=== PATIENT | female | born 1990 | race Caucasian/White ===

== ENCOUNTER 2019-08-04 08:00 | Outpatient (CLI) | payer OTHER ==
[2019-08-04 21:37] LABS: CANDIDA GROUP DNA POSITIVE (NEGATIVE); CANDIDA KRUSEI DNA NEGATIVE (NEGATIVE); TRICHOMONAS VAGINALIS DNA NEGATIVE (NEGATIVE)
== END 2019-08-04 23:59 | disposition home or self-care (01) ==
LOC: LAB.R 08:00
PROVIDERS: ATTEND Obstetrics & Gynecology
DX: B37.3 Candidiasis of vulva and vagina (principal)
CPT/HCPCS: 87661; 87801

== ENCOUNTER 2019-10-03 07:00 | Outpatient (CLI) | payer OTHER | END 2019-10-03 23:59 | disposition home or self-care (01) | LOC: LAB.WCP 07:00 | PROVIDERS: ATTEND Physician Assistant | DX: E03.9 Hypothyroidism, unspecified (principal) | CPT/HCPCS: 36415; 84443 ==

== ENCOUNTER 2019-11-07 14:27 | Outpatient (CLI) | payer OTHER | END 2019-11-07 23:59 | disposition home or self-care (01) | LOC: LAB.WCP 14:27 | PROVIDERS: ATTEND Physician Assistant | DX: R63.5 Abnormal weight gain (principal) | CPT/HCPCS: 36415; 82088; 84244 ==

== ENCOUNTER 2019-11-09 09:45 | Outpatient (CLI) | payer OTHER ==
[2019-11-15 10:23] LABS: CREATININE, URINE 1.38 g/24 h (0.50-2.15)
== END 2019-11-09 23:59 | disposition home or self-care (01) ==
LOC: LAB.R 09:45
PROVIDERS: ATTEND Physician Assistant
DX: R63.5 Abnormal weight gain (principal)
CPT/HCPCS: 82530; 82570

== ENCOUNTER 2020-05-03 10:31 | Outpatient (CLI) | payer OTHER ==
[2020-05-03 11:24] LABS: THYROID STIMULATING HORMONE 2.2 uIU/mL (0.34-5.60)
[2020-05-03 11:52] LABS: FOLLICLE STIMULATING HORMONE 5.72 mIU/mL
[2020-05-03 11:53] LABS: LUTEINIZING HORMONE 4.47 mIU/mL
[2020-05-04 07:14] LABS: PROGESTERONE 0.5 ng/mL
== END 2020-05-03 10:32 | disposition home or self-care (01) ==
LOC: LAB 10:31
PROVIDERS: ATTEND Obstetrics & Gynecology
DX: N97.0 Female infertility associated with anovulation (principal)
CPT/HCPCS: 36415; 81599; 82627; 82670; 83001; 83002; 84144; 84402; 84403; 84443

== ENCOUNTER 2020-05-13 14:15 | Outpatient (CLI) | payer OTHER ==
--- NOTE | 2020-05-13 15:13 | Ultrasound Report ---
PROCEDURE: Pelvic w/Transvaginal INDICATIONS: ANOVULATION TECHNIQUE: Real-time scanning was performed of the pelvic organs, with image documentation. Additional endovagi nal scanning was necessary due to incomplete visualization of the adnexal and endometrial structures by transabdominal scanning. COMPARISON: None. FINDINGS: Transabdominal scanning: Limited scanning through the kidneys shows no hydronephrosis. No pathologi c free abdominal or pelvic fluid. Endovaginal scanning: Uterus: Uterus is normal in size at 8.4 x 3.8 x 4.8 cm. Uterine echotexture is heterogeneous. The e ndometrium measures 4 mm in combined thickness. Ovaries: Greater than 12 follicular cysts are present which in each ovary. IMPRESSION: 1. Findings which would be consistent with polycystic ovarian syndrome in the appropriate clinical se tting. Reviewed by: Sean Mata MD on 05/13/2020 3:11 PM PDT Approved by: Sean Mata MD on 05/13/2020 3:11 PM PDT Station ID: [id number]
== END 2020-05-13 14:16 | disposition home or self-care (01) ==
LOC: DI 14:15
PROVIDERS: ATTEND Obstetrics & Gynecology
DX: N83.02 Follicular cyst of left ovary (principal); N83.01 Follicular cyst of right ovary
CPT/HCPCS: 76830; 76856

== ENCOUNTER 2020-06-22 08:00 | Outpatient (CLI) | payer OTHER ==
[2020-06-22 10:01] LABS: MUDS CUTOFF CONCENTRATIONS CUTOFF CONC BELOW:
[2020-06-22 10:12] LABS: BILIRUBIN,URINE NEGATIVE (NEGATIVE); GLUCOSE, URINE (UA) NEGATIVE (NEGATIVE); KETONES,URINE (UA) NEGATIVE (NEGATIVE); LEUKOCYTE ESTERASE, URINE NEGATIVE (NEGATIVE); NITRITE,URINE NEGATIVE (NEGATIVE); OCCULT BLOOD,URINE NEGATIVE (NEGATIVE); PROTEIN,URINE NEGATIVE (NEGATIVE); UROBILINOGEN,URINE 0.2 (NORMAL) E.U./dL (NORMAL)
[2020-06-22 10:26] LABS: BACTERIA,URINE None Seen /HPF (None Seen); CLARITY,URINE CLEAR (CLEAR); RBC,URINE None Seen /HPF (0-5); SQUAMOUS EPITHELIAL CELL,UR RARE Squamous (<= Few)
[2020-06-22 10:36] LABS: AMPHETAMINE SCREEN,URINE NEGATIVE (NEGATIVE); BENZODIAZEPINES SCREEN, URINE NEGATIVE (NEGATIVE); COCAINE SCREEN URINE NEGATIVE (NEGATIVE); METHADONE SCREEN, URINE NEGATIVE (NEGATIVE); METHAMPHETAMINES SCREEN, URINE NEGATIVE (NEGATIVE); OPIATE SCREEN, URINE NEGATIVE (NEGATIVE); OXYCODONE SCREEN, URINE NEGATIVE (NEGATIVE); PROPOXYPHENE SCREEN, URINE NEGATIVE (NEGATIVE); TRICYCLIC ANTIDEPRESSANT,URINE NEGATIVE (NEGATIVE)
== END 2020-06-22 23:59 | disposition home or self-care (01) ==
LOC: LAB.R 08:00
PROVIDERS: ATTEND Obstetrics & Gynecology
DX: Z32.01 Encounter for pregnancy test, result positive (principal)
CPT/HCPCS: 80306; 81001; 87086

== ENCOUNTER 2020-07-04 08:00 | Outpatient (CLI) | payer OTHER ==
--- NOTE | 2020-07-05 10:18 | Ultrasound Report ---
PROCEDURE: OB First Trimester INDICATIONS: POSITIVE TEST OUTSIDE/PRIOR DATING DATA: Last menstrual period (LMP): 05/02/2020. LMP-based estimated date of delivery (MINE): 02/06/2021. First dating scan (date and location): 07/04/2020, current study. Estimated date of delivery (MINE) from first dating scan: 02/23/2020. TECHNIQUE: Real-time scanning was performed of the fetus and maternal pelvic organs, with image documentation. Transvaginal imaging was performed for more accurate assessment of the pole size. COMPARISON: None during this FINDINGS: Embryo: An intrauterine gestational sac contains products of conception including a pole and y olk sac. Mean gestational sac diameter is 2.1 cm. Average crown-rump length of the pole is 7.8 mm. There is detectable cardiac activity at a rate of 146 bpm. Yolk sac is normal size. Measurement variability in dating: +/- 4 weeks by LMP, +/- 7 days by mean sac diameter (use before 6 weeks gestation if crown-rump length not able to be measured), +/- 5 days by crown-rump length (6-12 weeks gestation). Maternal organs: Closed cervix. No perigestational hemorrhage. Small fibroid in a subserosal left po sterior position measuring 1.2 cm. The ovaries are normal. There is a corpus luteum on the left ovary . Limited images through the kidneys demonstrate no hydronephrosis. There is mild hepatic steatosis. IMPRESSION: 1. Single living intrauterine with gestational age by crown-rump length of 6 weeks, 5 days, and estimated due date of 02/23/2020. 2. Left ovarian corpus luteum. 3. Small subserosal fibroid. 4. Mild hepatic steatosis. Reviewed by: Rosanna Badillo MD on 07/05/2020 10:17 AM PDT Approved by: Rosanna Badillo MD on 07/05/2020 10:17 AM PDT Station ID: [id number]
--- NOTE | 2020-07-05 10:18 | Ultrasound Report ---
PROCEDURE: OB First Trimester INDICATIONS: POSITIVE TEST OUTSIDE/PRIOR DATING DATA: Last menstrual period (LMP): 05/02/2020. LMP-based estimated date of delivery (MINE): 02/06/2021. First dating scan (date and location): 07/04/2020, current study. Estimated date of delivery (MINE) from first dating scan: 02/23/2020. TECHNIQUE: Real-time scanning was performed of the fetus and maternal pelvic organs, with image documentation. COMPARISON: None during this FINDINGS: Embryo: An intrauterine gestational sac contains products of conception including a pole and y olk sac. Mean gestational sac diameter is 2.1 cm. Average crown-rump length of the pole is 7.8 mm. There is detectable cardiac activity at a rate of 146 bpm. Yolk sac is normal size. Measurement variability in dating: +/- 4 weeks by LMP, +/- 7 days by mean sac diameter (use before 6 weeks gestation if crown-rump length not able to be measured), +/- 5 days by crown-rump length (6-12 weeks gestation). Maternal organs: Closed cervix. No perigestational hemorrhage. Small fibroid in a subserosal left po sterior position measuring 1.2 cm. The ovaries are normal. There is a corpus luteum on the left ovary . Limited images through the kidneys demonstrate no hydronephrosis. There is mild hepatic steatosis. IMPRESSION: 1. Single living intrauterine with gestational age by crown-rump length of 6 weeks, 5 days, and estimated due date of 02/23/2020. 2. Left ovarian corpus luteum. 3. Small subserosal fibroid. 4. Mild hepatic steatosis. Reviewed by: Rosanna Badillo MD on 07/05/2020 10:16 AM PDT Approved by: Rosanna Badillo MD on 07/05/2020 10:16 AM PDT Station ID: [id number]
== END 2020-07-04 23:59 | disposition home or self-care (01) ==
LOC: DI 08:00
PROVIDERS: ATTEND Obstetrics & Gynecology
DX: O34.81 Maternal care for other abnormalities of pelvic organs, first trimester (principal); N83.12 Corpus luteum cyst of left ovary; O34.11 Maternal care for benign tumor of corpus uteri, first trimester; D25.2 Subserosal leiomyoma of uterus; Z3A.01 Less than 8 weeks gestation of pregnancy
CPT/HCPCS: 76801; 76817

== ENCOUNTER 2020-07-31 12:26 | Outpatient (CLI) | payer OTHER ==
[2020-07-31 12:41] LABS: BASOPHILS # (AUTO) 0.1 10^3/uL (0.0-0.1); BASOPHILS % (AUTO) 0.6 %; EOSINOPHILS # (AUTO) 0.1 10^3/uL (0.0-0.7); EOSINOPHILS % (AUTO) 0.9 %; HGB - HEMOGLOBIN 12.7 g/dL (12.0-16.0); LYMPHOCYTES # (AUTO) 2.1 10^3/uL (1.5-3.5); LYMPHOCYTES % (AUTO) 23.5 %; MEAN CORPUSCULAR HEMOGLOBIN 32.9 pg (27.0-31.0); MEAN CORPUSCULAR HGB CONC 34.5 g/dL (32.0-36.0); MEAN CORPUSCULAR VOLUME 95.3 fL (81.0-99.0); MONOCYTES # (AUTO) 0.5 10^3/uL (0.0-1.0); NEUTROPHILS # (AUTO) 6.1 10^3/uL (1.5-6.6); NEUTROPHILS % (AUTO) 68.4 %; PLT - PLATELET COUNT 275 10^3/uL (130-450); RED BLOOD COUNT 3.86 10^6/uL (4.20-5.40); RED CELL DISTRIBUTION WIDTH 11.9 % (12.0-15.0); WHITE BLOOD COUNT 8.9 x10^3/uL (4.8-10.8)
[2020-07-31 13:08] LABS: ALBUMIN 3.9 g/dL (3.2-5.5); BILIRUBIN,TOTAL 0.6 mg/dL (0.2-1.0); CALCIUM 9.6 mg/dL (8.5-10.3); CREATININE 0.7 mg/dL (0.4-1.0); TOTAL PROTEIN 7.7 g/dL (6.7-8.2)
[2020-07-31 21:40] LABS: HEMOGLOBIN A1c% 4.5 % (4.27-6.07)
[2020-08-01 10:51] LABS: HIV AG/AB 4TH GEN NON-REACTIVE (NON-REACTIVE)
[2020-08-01 13:36] LABS: HEPATITIS C ANTIBODY NON-REACTIVE (NON-REACTIVE)
[2020-08-01 14:21] LABS: HEPATITIS B SURFACE ANTIGEN NON-REACTIVE (NON-REACTIVE)
== END 2020-07-31 12:27 | disposition home or self-care (01) ==
LOC: LAB 12:26
PROVIDERS: ATTEND Obstetrics & Gynecology
DX: O09.90 Supervision of high risk pregnancy, unspecified, unspecified trimester (principal); Z3A.00 Weeks of gestation of pregnancy not specified
CPT/HCPCS: 36415; 80053; 81220; 81243; 81329; 81599; 83036; 84443; 85025; 86592; 86762; 86803; 86850; 86900; 86901; 87340; 87389

== ENCOUNTER 2020-08-15 09:59 | Outpatient (CLI) | payer SELFPAY | END 2020-08-15 10:00 | disposition home or self-care (01) | LOC: LAB 09:59 | PROVIDERS: ATTEND Obstetrics & Gynecology | DX: Z01.89 Encounter for other specified special examinations (principal) | CPT/HCPCS: 36415 ==

== ENCOUNTER 2020-08-29 09:47 | Outpatient (CLI) | payer SELFPAY | END 2020-08-29 09:48 | disposition home or self-care (01) | LOC: LAB 09:47 | PROVIDERS: ATTEND Obstetrics & Gynecology | DX: O09.90 Supervision of high risk pregnancy, unspecified, unspecified trimester (principal) | CPT/HCPCS: 36415 ==

== ENCOUNTER 2020-09-20 16:48 | Outpatient (CLI) | payer OTHER ==
--- NOTE | 2020-09-20 19:26 | Ultrasound Report ---
PROCEDURE: OB F/U or Repeat INDICATIONS: HX OF PULMONARY EMBOLISM OUTSIDE/PRIOR DATING DATA: Last menstrual period (LMP): 05/02/2020. LMP-based estimated date of delivery (MINE): 02/06/2021. First dating scan (date and location): 07/04/2020. Estimated date of delivery (MINE) from first dating scan: 02/22/2021. TECHNIQUE: Real-time scanning was performed of the fetus, with image documentation and biometric measurements. Endovaginal scanning: Not needed COMPARISON: 07/04/2020 FINDINGS: General: A single living intrauterine gestation is present. Presentation: Cephalic Placenta: Placental position is posterior, without previa. Amniotic fluid index: 16.4 cm, normal for gestational age. heart rate: 152 beats per minute. Maternal cervical canal: 5.8 cm long; normal length is 2.5 cm or more. biometrics: Biparietal diameter: 3.8 cm, 17 weeks 4 days Head circumference: 14.4 cm, 17 weeks 5 days Abdominal circumference: 12.4 cm, 18 weeks 0 days Femur length: 2.5 cm, 17 weeks 4 days Estimated gestational age from initial scan: 17 weeks 6 days. Composite gestational age from present scan: 17 weeks 5 days Estimated weight and percentile: 210 g, 40th percentile Measurement variability in biometric dating: +/- 10 days from 12-20 weeks gestation, +/- 2 weeks from 20-30 weeks gestation, +/- 3 weeks at 30 weeks gestation or more. Other: Not applicable. IMPRESSION: Appropriate interval growth, no anomaly seen. anatomic survey is not perform ed due to early gestational age. The current age estimate is 17 weeks 5 days, and the delivery date i s projected to be centered on 02/22/2021, +/- 5 days. Reviewed by: Jake Tate MD on 09/20/2020 7:25 PM PST Approved by: Jake Tate MD on 09/20/2020 7:25 PM PST Station ID: [id number]
== END 2020-09-20 16:49 | disposition home or self-care (01) ==
LOC: DI 16:48
PROVIDERS: ATTEND Obstetrics & Gynecology
DX: O99.891 Other specified diseases and conditions complicating pregnancy (principal); Z86.711 Personal history of pulmonary embolism; Z3A.17 17 weeks gestation of pregnancy

== ENCOUNTER 2020-10-02 11:04 | Outpatient (CLI) | payer OTHER ==
[2020-10-02 11:31] LABS: HGB - HEMOGLOBIN 11.5 g/dL (12.0-16.0); MEAN CORPUSCULAR HEMOGLOBIN 33.6 pg (27.0-31.0); MEAN CORPUSCULAR HGB CONC 34.3 g/dL (32.0-36.0); MEAN PLATELET VOLUME 10.3 fL (7.9-10.8); RED BLOOD COUNT 3.42 10^6/uL (4.20-5.40); RED CELL DISTRIBUTION WIDTH 13.2 % (12.0-15.0); WHITE BLOOD COUNT 10.8 x10^3/uL (4.8-10.8)
== END 2020-10-02 11:05 | disposition home or self-care (01) ==
LOC: LAB 11:04
PROVIDERS: ATTEND Obstetrics & Gynecology
DX: O09.90 Supervision of high risk pregnancy, unspecified, unspecified trimester (principal)
CPT/HCPCS: 36415; 81599; 82105; 85027

== ENCOUNTER 2020-10-12 20:01 | Outpatient (CLI) | payer OTHER ==
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
[2020-10-12] MEDS ORDERED: CYCLOBENZAPRINE 10 MG TABLET PO PRN (20:45)
[2020-10-12 20:58] VITALS: BP 137/82
[2020-10-12 21:07] LABS: BILIRUBIN,URINE NEGATIVE (NEGATIVE); GLUCOSE, URINE (UA) NEGATIVE (NEGATIVE); KETONES,URINE (UA) NEGATIVE (NEGATIVE); LEUKOCYTE ESTERASE, URINE NEGATIVE (NEGATIVE); NITRITE,URINE NEGATIVE (NEGATIVE); OCCULT BLOOD,URINE NEGATIVE (NEGATIVE); PROTEIN,URINE NEGATIVE (NEGATIVE); UROBILINOGEN,URINE 0.2 (NORMAL) E.U./dL (NORMAL)
[2020-10-12 21:12] LABS: CLARITY,URINE HAZY (CLEAR)
[2020-10-12 21:31] LABS: RBC,URINE None Seen /HPF (0-5); SQUAMOUS EPITHELIAL CELL,UR MOD Squamous (<= Few)
[2020-10-12 21:32] LABS: BACTERIA,URINE Few /HPF (None Seen)
[2020-10-12 22:30] LABS: CANDIDA GROUP DNA NEGATIVE (NEGATIVE); CANDIDA KRUSEI DNA NEGATIVE (NEGATIVE); TRICHOMONAS VAGINALIS DNA NEGATIVE (NEGATIVE)
[2020-10-12 23:16] LABS: TRICHOMONAS VAGINALIS DNA NEGATIVE (NEGATIVE)
== END 2020-10-12 21:10 | disposition home or self-care (01) ==
LOC: WFO 20:01 → FBP 20:02 → WFO 21:10
PROVIDERS: ATTEND Obstetrics & Gynecology
DX: O47.02 False labor before 37 completed weeks of gestation, second trimester (principal); O99.891 Other specified diseases and conditions complicating pregnancy; M54.9 Dorsalgia, unspecified; M41.9 Scoliosis, unspecified; Z3A.31 31 weeks gestation of pregnancy; O10.912 Unspecified pre-existing hypertension complicating pregnancy, second trimester; O99.512 Diseases of the respiratory system complicating pregnancy, second trimester; J45.40 Moderate persistent asthma, uncomplicated; O99.412 Diseases of the circulatory system complicating pregnancy, second trimester; R55 Syncope and collapse; O99.612 Diseases of the digestive system complicating pregnancy, second trimester; K44.9 Diaphragmatic hernia without obstruction or gangrene; Z86.711 Personal history of pulmonary embolism; Z87.11 Personal history of peptic ulcer disease
CPT/HCPCS: 81001; 82731; 87481; 87491; 87591; 87661; 87801; 99213; A9270; 87086

== ENCOUNTER 2020-10-17 08:59 | Outpatient (CLI) | payer OTHER ==
[2020-10-17 09:33] VITALS: BP 133/83
[2020-10-17 10:03] LABS: BILIRUBIN,URINE NEGATIVE (NEGATIVE); GLUCOSE, URINE (UA) NEGATIVE (NEGATIVE); KETONES,URINE (UA) NEGATIVE (NEGATIVE); LEUKOCYTE ESTERASE, URINE NEGATIVE (NEGATIVE); NITRITE,URINE NEGATIVE (NEGATIVE); OCCULT BLOOD,URINE NEGATIVE (NEGATIVE); PROTEIN,URINE NEGATIVE (NEGATIVE); UROBILINOGEN,URINE 0.2 (NORMAL) E.U./dL (NORMAL)
[2020-10-17 10:05] LABS: CLARITY,URINE CLEAR (CLEAR)
[2020-10-17 10:18] LABS: RBC,URINE 0-5 /HPF (0-5); SQUAMOUS EPITHELIAL CELL,UR RARE Squamous (<= Few)
[2020-10-17 10:19] LABS: BACTERIA,URINE Rare /HPF (None Seen)
--- NOTE | 2020-10-17 11:41 | Ultrasound Report ---
PROCEDURE: OB Transvaginal INDICATIONS: Abdominal cramping, 21 weeks 6 days. MINE 02/22/21 OUTSIDE/PRIOR DATING DATA: Last menstrual period (LMP): 05/02/2020. LMP-based estimated date of delivery (MINE): 02/06/2021. First dating scan (date and location): 07/04/2020. Estimated date of delivery (MINE) from first dating scan: 02/22/2021. TECHNIQUE: Real-time scanning was performed of the fetus, with image documentation and biometric measurements. Endovaginal scanning: Not needed COMPARISON: 07/04/2020 and 09/20/2020 FINDINGS: General: A single living intrauterine gestation is present. Presentation: Cephalic Placenta: Placental position is posterior, without previa. Amniotic fluid index: 12.1 cm, normal for gestational age. heart rate: 153 beats per minute. Maternal cervical canal: 4.5 cm long; normal length is 2.5 cm or more. Estimated gestational age from initial scan: 21 weeks, 5 days Other: No gross abnormality is seen in bilateral adnexa. chest, stomach, bilateral kidneys and urinary bladder are visualized and are within normal limits.. IMPRESSION: 1. Single live intrauterine with fetus in cephalic presentation. heart rate is 153 bp m. Normal amount of amniotic fluid. Cervical length measures 4.5 cm and is within normal limits. Reviewed by: Sherwin Donovan MD on 10/17/2020 11:40 AM PST Approved by: Sherwin Donovan MD on 10/17/2020 11:40 AM PST Station ID: [id number]
--- NOTE | 2020-11-12 08:11 | PROVIDER PROGRESS NOTE ---
- HPI Current : Current EDU 02/23/20 Gestation 73 Weeks and 6 Days 1 Para 0 Vital Signs Temperature 98.2 F 10/17/20 09:15 Heart Rate 129 H 10/17/20 09:15 Respiratory Rate 10/17/20 09:15 Blood Pressure 133/83 H 10/17/20 09:15 O2 Saturation 99 10/17/20 09:15 Temperature 98.2 F 10/17/20 09:15 Heart Rate 129 H 10/17/20 09:15 Respiratory Rate 10/17/20 09:15 Blood Pressure 133/83 H 10/17/20 09:15 O2 Saturation 99 10/17/20 09:15 - Exam GEN: NAD HEAD: NCAT EYES: No scleral icterus or conjunctival injection NECK: No cervical LAD or TM CV: RRR RESP: CTAB, normal effort ABD: S&NT/ND PSYCH: appropriate affect NEURO: alert and oriented, normal gait and coordination EXT: WWP - Procedures NST Procedure: NA- previable. Dopplers show FHT 155 Service Date of procedure: 10/17/20 Findings: Patient is a 30 yo here with cramping at 21+5 wga. patient had seen chiropractor and experienced pelvic crmaping thereafter. No LOF or VB. Endorses FM. See PE above TOCO showed no contractions. Formal us showed cervical length to be 4.5 cm UA wnl FFN neg Reassured patient that cramping is likely MSK and unrelated to contractions Warning signs reviewed DC to home Final DX: False labor
== END 2020-10-17 11:30 | disposition home or self-care (01) ==
LOC: WFO 08:59 → FBP 09:01 → WFO 11:30
PROVIDERS: ATTEND Obstetrics & Gynecology
DX: O47.02 False labor before 37 completed weeks of gestation, second trimester (principal); Z3A.21 21 weeks gestation of pregnancy
CPT/HCPCS: 81001; 82731; 87086; 99212

== ENCOUNTER 2020-11-13 08:00 | Outpatient (CLI) | payer OTHER ==
[2020-11-13 18:11] LABS: BASOPHILS % (AUTO) 0.4 %; EOSINOPHILS # (AUTO) 0.1 10^3/uL (0.0-0.7); EOSINOPHILS % (AUTO) 0.7 %; HGB - HEMOGLOBIN 11.4 g/dL (12.0-16.0); LYMPHOCYTES # (AUTO) 1.8 10^3/uL (1.5-3.5); LYMPHOCYTES % (AUTO) 16.8 %; MEAN CORPUSCULAR HEMOGLOBIN 33.2 pg (27.0-31.0); MEAN CORPUSCULAR HGB CONC 32.5 g/dL (32.0-36.0); MEAN CORPUSCULAR VOLUME 102.3 fL (81.0-99.0); MONOCYTES # (AUTO) 0.5 10^3/uL (0.0-1.0); MONOCYTES % (AUTO) 4.4 %; NEUTROPHILS % (AUTO) 75.7 %; PLT - PLATELET COUNT 245 10^3/uL (130-450); RED BLOOD COUNT 3.43 10^6/uL (4.20-5.40); RED CELL DISTRIBUTION WIDTH 13.3 % (12.0-15.0); WHITE BLOOD COUNT 10.5 x10^3/uL (4.8-10.8)
== END 2020-11-13 23:59 | disposition home or self-care (01) ==
LOC: LAB.WCP 08:00
PROVIDERS: ATTEND Obstetrics & Gynecology
DX: Z36.89 Encounter for other specified antenatal screening (principal)
CPT/HCPCS: 36415; 82950; 85025

== ENCOUNTER 2020-12-06 07:00 | Outpatient (CLI) | payer OTHER ==
[2020-12-06 19:38] LABS: BILIRUBIN,URINE NEGATIVE (NEGATIVE); GLUCOSE, URINE (UA) NEGATIVE (NEGATIVE); KETONES,URINE (UA) NEGATIVE (NEGATIVE); LEUKOCYTE ESTERASE, URINE NEGATIVE (NEGATIVE); NITRITE,URINE NEGATIVE (NEGATIVE); OCCULT BLOOD,URINE TRACE-INTA (NEGATIVE); PH,URINE 6.5 PH (5.0-7.5); PROTEIN,URINE NEGATIVE (NEGATIVE); UROBILINOGEN,URINE 0.2 (NORMAL) E.U./dL (NORMAL)
[2020-12-06 19:48] LABS: BACTERIA,URINE None Seen /HPF (None Seen); CLARITY,URINE CLEAR (CLEAR); RBC,URINE 0-5 /HPF (0-5); SQUAMOUS EPITHELIAL CELL,UR FEW Squamous (<= Few)
== END 2020-12-06 23:59 | disposition home or self-care (01) ==
LOC: LAB.R 07:00
PROVIDERS: ATTEND Obstetrics & Gynecology
DX: N39.0 Urinary tract infection, site not specified (principal)
CPT/HCPCS: 81001; 87086

== ENCOUNTER 2020-12-31 13:47 | Outpatient (CLI) | payer OTHER ==
[2020-12-31 14:14] VITALS: BP 125/67
--- NOTE | 2020-12-31 17:29 | Ultrasound Report ---
PROCEDURE: OB Biophysical Profile INDICATIONS: hx:DVT with PE OUTSIDE/PRIOR DATING DATA: Last menstrual period (LMP): 05/02/2020. LMP-based estimated date of delivery (MINE): 02/06/2021. First dating scan (date and location): 07/04/2020. Estimated date of delivery (MINE) from first dating scan: 02/22/2021. TECHNIQUE: Real-time scanning was performed of the fetus, with image documentation and biometric humberto surements. Biophysical profile was also obtained. Endovaginal scanning: Not performed COMPARISON: 07/04/2020, 09/20/2020, 10/17/2020 FINDINGS: General: A single living intrauterine gestation is present. Presentation: Vertex Placenta: Placental position is posterior, without previa. Amniotic fluid index: 11.9 cm, 25th percentile for gestational age. heart rate: 147 beats per minute. Maternal cervical canal: 3.7 cm long; normal length is 2.5 cm or more. Estimated gestational age from initial scan: 32 weeks 3 days. Biophysical profile: Tone: 2 points. Movement: 2 points. Respiration: 2 points. Largest pocket of fluid: 2 points. Largest pocket 4.4 cm Umbilical artery Doppler: SD ratio measures 2.6, 2.6, 2.4 IMPRESSION: Single living intrauterine fetus in vertex presentation. Normal biophysical profile. Normal cord Doppler examination Reviewed by: Manny Ruggiero MD on 12/31/2020 5:28 PM PDT Approved by: Manny Ruggiero MD on 12/31/2020 5:28 PM PDT Station ID: [id number]
--- NOTE | 2020-12-31 17:31 | PROCEDURE REPORT ---
- HPI Diagnosis/Indication for NST: Other (History of pulmonary embolism, high risk medication use (lovenox)) Current EDU 02/22/21 Gestation 32 Weeks and 3 Days 1 Para 0 Vital Signs Temperature 98.4 F 12/31/20 14:05 Heart Rate 110 H 12/31/20 14:05 Respiratory Rate 18 12/31/20 14:05 Blood Pressure 125/67 12/31/20 14:05 O2 Saturation 99 12/31/20 14:05 Temperature 98.4 F 12/31/20 14:05 Heart Rate 110 H 12/31/20 14:05 Respiratory Rate 18 12/31/20 14:05 Blood Pressure 125/67 12/31/20 14:05 O2 Saturation 99 12/31/20 14:05 - NST Procedure NST Procedure Start Date 12/31/20 Start Time 14:05 Stop Time 14:40 Vibroacoustic Stimulation Used No Patient States Movement Yes - Results and Plan Findings/Impression: Baseline: BPM 145 Variability: Moderate Accelerations: Present Decelerations: Tiny 5 second variables with kendra to 120 BPM, resolved later in tracing Trends in FHR over time: no changes Rembrandt contractions in 10 minutes: 0 Impression: reactive Category 1 NST Pt reports excellent movement. BPP 10/10.
== END 2020-12-31 16:20 | disposition home or self-care (01) ==
LOC: WFO 13:47 → FBP 13:52 → WFO 16:20
PROVIDERS: ATTEND Obstetrics & Gynecology
DX: O09.90 Supervision of high risk pregnancy, unspecified, unspecified trimester (principal); O88.213 Thromboembolism in pregnancy, third trimester; O16.3 Unspecified maternal hypertension, third trimester; Z3A.32 32 weeks gestation of pregnancy; Z79.01 Long term (current) use of anticoagulants; Z86.718 Personal history of other venous thrombosis and embolism
CPT/HCPCS: 59025

== ENCOUNTER 2021-01-03 13:45 | Outpatient (CLI) | payer OTHER ==
[2021-01-03 13:54] VITALS: BP 138/88
--- NOTE | 2021-01-03 16:01 | Ultrasound Report ---
PROCEDURE: OB Biophysical Profile INDICATIONS: decels OUTSIDE/PRIOR DATING DATA: Last menstrual period (LMP): 05/02/2020. LMP-based estimated date of delivery (MINE): 02/06/2021. First dating scan (date and location): 07/04/2020. Estimated date of delivery (MINE) from first dating scan: 03/04/2021. TECHNIQUE: Real-time scanning was performed of the fetus, with image documentation and biometric humberto surements. Biophysical profile was also obtained. COMPARISON: OB ultrasound 12/31/2020, 10/17/2020 FINDINGS: General: A single living intrauterine gestation is present. Presentation: Vertex Placenta: Placental position is posterior, without previa. Amniotic fluid index: 11.6 cm, 24th percentile for gestational age. Largest pocket 5.2 cm heart rate: 140 beats per minute. Maternal cervical canal: 4 cm long; normal length is 2.5 cm or more. Biophysical profile: Tone: 2 points. Movement: 2 points. Respiration: 2 points. Largest pocket of fluid: 2 points. Umbilical artery Doppler: Systolic to diastolic ratio at the cord insertion 2.8, mid cord, 2.8 and p lacenta 2.5. IMPRESSION: 1. Single live with BPP of 8 out of 8. Reviewed by: Saima Alarcon MD on 01/03/2021 3:59 PM PDT Approved by: Saima Alarcon MD on 01/03/2021 3:59 PM PDT Station ID: [id number]
--- NOTE | 2021-01-04 21:14 | PROCEDURE REPORT ---
- HPI Diagnosis/Indication for NST: Other (Hx of PE) Current EDU 02/22/21 Gestation 32 Weeks and 6 Days 1 Para 0 Vital Signs Temperature 98.1 F 01/03/21 13:53 Heart Rate 114 H 01/03/21 13:53 Respiratory Rate 18 01/03/21 13:53 Blood Pressure 138/88 H 01/03/21 13:53 O2 Saturation 100 01/03/21 13:53 Temperature 98.1 F 01/03/21 13:53 Heart Rate 114 H 01/03/21 13:53 Respiratory Rate 18 01/03/21 13:53 Blood Pressure 138/88 H 01/03/21 13:53 O2 Saturation 100 01/03/21 13:53 - NST Procedure NST Procedure Start Date 01/03/21 Start Time 13:50 Stop Time 14:40 Vibroacoustic Stimulation Used No Patient States Movement No EFM 145 mod vianey 15x15 accels no decels TOCO: quiet - Results and Plan Findings/Impression: 30 yo at 32+6 wga with hx of PE here for NST Cat I tracing Cont with twice weekly NST and weekly GHADA
== END 2021-01-03 15:42 | disposition home or self-care (01) ==
LOC: WFO 13:45 → FBP 13:47 → WFO 15:42
PROVIDERS: ATTEND Obstetrics & Gynecology
DX: O09.893 Supervision of other high risk pregnancies, third trimester (principal); Z86.711 Personal history of pulmonary embolism; Z3A.32 32 weeks gestation of pregnancy
CPT/HCPCS: 59025

== ENCOUNTER 2021-01-07 14:02 | Outpatient (CLI) | payer OTHER ==
[2021-01-07 14:39] VITALS: BP 145/73
--- NOTE | 2021-01-09 14:22 | PROCEDURE REPORT ---
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) Current EDU 02/22/21 Gestation 33 Weeks and 3 Days 1 Para 0 Vital Signs Temperature 36.4 C L 01/07/21 14:32 Heart Rate 118 H 01/07/21 14:32 Respiratory Rate 18 01/07/21 14:32 Blood Pressure 145/73 H 01/07/21 14:32 Temperature 36.4 C L 01/07/21 14:32 Heart Rate 118 H 01/07/21 14:32 Respiratory Rate 18 01/07/21 14:32 Blood Pressure 145/73 H 01/07/21 14:32 O2 Saturation - NST Procedure NST Procedure Start Date 01/07/21 Start Time 14:15 Stop Time 14:47 Vibroacoustic Stimulation Used No Patient States Movement Yes - Results and Plan Findings/Impression: reactive nst Plan: continue antinatal testing
== END 2021-01-07 14:50 | disposition home or self-care (01) ==
LOC: WFO 14:02 → FBP 14:07 → WFO 14:50
PROVIDERS: ATTEND Obstetrics & Gynecology
DX: O99.113 Other diseases of the blood and blood-forming organs and certain disorders involving the immune mechanism complicating pregnancy, third trimester (principal); D68.59 Other primary thrombophilia; Z3A.33 33 weeks gestation of pregnancy; Z79.01 Long term (current) use of anticoagulants
CPT/HCPCS: 59025

== ENCOUNTER 2021-01-10 13:53 | Outpatient (CLI) | payer OTHER ==
[2021-01-10 14:29] VITALS: BP 139/93
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
== END 2021-01-10 16:50 | disposition home or self-care (01) ==
LOC: WFO 13:53 → FBP 13:54 → WFO 16:50
PROVIDERS: ATTEND Obstetrics & Gynecology
DX: O99.413 Diseases of the circulatory system complicating pregnancy, third trimester (principal); R55 Syncope and collapse; R00.0 Tachycardia, unspecified; O10.913 Unspecified pre-existing hypertension complicating pregnancy, third trimester; Z3A.33 33 weeks gestation of pregnancy; O99.513 Diseases of the respiratory system complicating pregnancy, third trimester; J45.40 Moderate persistent asthma, uncomplicated; O99.891 Other specified diseases and conditions complicating pregnancy; M41.9 Scoliosis, unspecified; O99.613 Diseases of the digestive system complicating pregnancy, third trimester; K21.9 Gastro-esophageal reflux disease without esophagitis; K44.9 Diaphragmatic hernia without obstruction or gangrene; Z86.711 Personal history of pulmonary embolism; Z87.11 Personal history of peptic ulcer disease; Z79.899 Other long term (current) drug therapy
CPT/HCPCS: 59025

== ENCOUNTER 2021-01-14 13:47 | Outpatient (CLI) | payer OTHER ==
[2021-01-14 14:10] VITALS: BP 124/64
--- NOTE | 2021-01-14 17:00 | Ultrasound Report ---
PROCEDURE: OB Biophysical Profile INDICATIONS: non-reactive NST OUTSIDE/PRIOR DATING DATA: Last menstrual period (LMP): 05/02/2020. LMP-based estimated date of delivery (MINE): 02/06/2021. First dating scan (date and location): 07/04/2020. Estimated date of delivery (MINE) from first dating scan: 03/04/2021. TECHNIQUE: Real-time scanning was performed of the fetus, with image documentation and biometric humberto surements. Biophysical profile was also obtained. Endovaginal scanning: Not needed COMPARISON: Prior OB ultrasound 07/04/2020 and 09/20/2020 FINDINGS: Again noted are multiple fibroids the largest posteriorly measuring 3.6 x 2.4 x 2.4 cm. General: A single living intrauterine gestation is present. Presentation: Vertex Placenta: Placental position is posterior, without previa. Amniotic fluid index: 11.7 cm, 24th percentile for gestational age. heart rate: 141 beats per minute. Maternal cervical canal: 5.0 cm long; normal length is 2.5 cm or more. biometrics: Estimated gestational age from initial scan: 21 weeks 5 days. Biophysical profile was performed yielding 8 of 8 possible points. The cord Doppler reveals normal sy stolic/diastolic ratios at the cord insertion and mid cord, but the placental cord insertion could no t be seen due to placental positioning and positioning. IMPRESSION: Normal amniotic fluid index, normal biophysical profile and systolic/diastolic ratios at the umbilica l cord as noted. viability is documented. Reviewed by: Jake Tate MD on 01/14/2021 4:58 PM PDT Approved by: Jake Tate MD on 01/14/2021 4:58 PM PDT Station ID: [id number]
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
== END 2021-01-14 16:10 | disposition home or self-care (01) ==
LOC: WFO 13:47 → FBP 13:50 → WFO 16:10
PROVIDERS: ATTEND Obstetrics & Gynecology
DX: O99.413 Diseases of the circulatory system complicating pregnancy, third trimester (principal); R55 Syncope and collapse; R00.0 Tachycardia, unspecified; O10.913 Unspecified pre-existing hypertension complicating pregnancy, third trimester; Z3A.34 34 weeks gestation of pregnancy; O99.891 Other specified diseases and conditions complicating pregnancy; M41.9 Scoliosis, unspecified; O99.513 Diseases of the respiratory system complicating pregnancy, third trimester; J45.40 Moderate persistent asthma, uncomplicated; Z87.11 Personal history of peptic ulcer disease; Z87.19 Personal history of other diseases of the digestive system; Z86.711 Personal history of pulmonary embolism
CPT/HCPCS: 59025

== ENCOUNTER 2021-01-28 13:31 | Outpatient (CLI) | payer OTHER ==
[2021-01-28 18:24] VITALS: BP 133/86
--- NOTE | 2021-01-28 18:38 | Ultrasound Report ---
PROCEDURE: OB Biophysical Profile INDICATIONS: NST, variables noted; MINE 02/22/21; LMP05/02/20 OUTSIDE/PRIOR DATING DATA: Last menstrual period (LMP): 05/02/2020. LMP-based estimated date of delivery (MINE): 02/06/2021. First dating scan (date and location): 07/04/2020. Estimated date of delivery (MINE) from first dating scan: 02/22/2021. TECHNIQUE: Real-time scanning was performed of the fetus, with image documentation and biometric humberto surements. Biophysical profile was also obtained. Endovaginal scanning: Not indicated COMPARISON: 12/31/2020, 01/03/2021 and 01/14/2021. FINDINGS: General: A single living intrauterine gestation is present. Presentation: Cephalic Placenta: Placental position is posterior,, without previa. Amniotic fluid index: 9.1 cm, 10.7 percentile for gestational age. Largest pocket measures 4.44 cm. heart rate: 162 beats per minute. Maternal cervical canal: 4.1 cm long and is closed; normal length is 2.5 cm or more. Estimated gestational age from initial scan: 36 weeks, 3 days Biophysical profile: Tone: 2 points. Movement: 2 points. Respiration: 2 points. Largest pocket of fluid: 2 points. Umbilical artery Doppler: 2.28, 2.07, 2.97 IMPRESSION: 1. Single live intrauterine with fetus in cephalic presentation. heart rate is 162 bp m. 2. GHADA equals 9.1 cm with largest pocket measures 4.4 cm. This is at 10.7 percentile. 3. biophysical profile score is 8 out of 8. 4. Umbilical artery S/D ratio is slightly elevated at the abdominal end and measures 2.97. Reviewed by: Sherwin Donovan MD on 01/28/2021 5:37 PM JUDIT Approved by: Sherwin Donovan MD on 01/28/2021 5:37 PM AKREESE Station ID: [id number]
--- NOTE | 2021-01-28 18:55 | PROCEDURE REPORT ---
- HPI Diagnosis/Indication for NST: Pre- Hypertension Current EDU 02/22/21 Gestation 36 Weeks and 3 Days 1 Para 0 Vital Signs Temperature 98.2 F 01/28/21 13:51 Heart Rate 120 H 01/28/21 13:51 Respiratory Rate 19 01/28/21 13:51 Blood Pressure 122/79 01/28/21 13:51 O2 Saturation 99 01/28/21 13:51 Temperature 98.2 F 01/28/21 13:51 Heart Rate 115 H 01/28/21 18:20 Respiratory Rate 20 01/28/21 18:20 Blood Pressure 133/86 H 01/28/21 18:20 O2 Saturation 98 01/28/21 18:20 - NST Procedure NST Procedure Start Date 01/28/21 Start Time 13:47 Stop Time 14:47 Vibroacoustic Stimulation Used Yes Patient States Movement Yes - Results and Plan Findings/Impression: Baseline: BPM 150 Variability: Moderate Accelerations: Present Decelerations: variable deceleration with 2min return to baseline Trends in FHR over time: baseline 140. Category 1-2 NST. [place] contractions in 10 minutes: occasional Impression: reactive Category 1 NST at discharge Pt with autonomic dysfunction, hx of PE, on heparin, chronic HTN, patient of . Here for routine surveillance. Good FM. No VB or LOF. Initial NST with 10x10 accels but not 15x15. VAS done and she had a "prolonged accel". then had a 2min variable with kendra 20BPM under baseline with slow return to baseline. BPP 8/8, dopplers normal. I called MFM at , they state that with normal BPP she can do routine follow up in 3d for her surveillance (already scheduled). Pt will f/u sooner PRN decreased movement or PTL symptoms.
== END 2021-01-28 19:00 | disposition home or self-care (01) ==
LOC: WFO 13:31 → FBP 13:33 → WFO 19:00
PROVIDERS: ATTEND Obstetrics & Gynecology
DX: O10.913 Unspecified pre-existing hypertension complicating pregnancy, third trimester (principal); O99.353 Diseases of the nervous system complicating pregnancy, third trimester; G90.9 Disorder of the autonomic nervous system, unspecified; O36.8330 Maternal care for abnormalities of the fetal heart rate or rhythm, third trimester, not applicable or unspecified; O09.90 Supervision of high risk pregnancy, unspecified, unspecified trimester; Z3A.36 36 weeks gestation of pregnancy; Z86.718 Personal history of other venous thrombosis and embolism; Z86.711 Personal history of pulmonary embolism
CPT/HCPCS: 59025; 99213

== ENCOUNTER 2021-02-04 13:45 | Outpatient (CLI) | payer OTHER ==
[2021-02-04 14:05] VITALS: BP 143/86
--- NOTE | 2021-02-06 09:47 | PROCEDURE REPORT ---
- HPI Diagnosis/Indication for NST: Other (Hx of DVT with PE) Current EDU 02/22/21 Gestation 37 Weeks and 3 Days 1 Para 0 Vital Signs Temperature 36.8 C 02/04/21 14:04 Heart Rate 128 H 02/04/21 14:04 Respiratory Rate 18 02/04/21 14:04 Blood Pressure 143/86 H 02/04/21 14:04 Temperature 36.8 C 02/04/21 14:04 Heart Rate 128 H 02/04/21 14:04 Respiratory Rate 18 02/04/21 14:04 Blood Pressure 143/86 H 02/04/21 14:04 O2 Saturation - NST Procedure NST Procedure Start Date 02/04/21 Start Time 13:54 Stop Time 14:15 Patient States Movement Yes - Results and Plan Findings/Impression: Reactive NST Plan: continue Antinatal testing
== END 2021-02-04 14:25 | disposition home or self-care (01) ==
LOC: WFO 13:45 → FBP 13:50 → WFO 14:25
PROVIDERS: ATTEND Obstetrics & Gynecology
DX: O09.893 Supervision of other high risk pregnancies, third trimester (principal); Z86.711 Personal history of pulmonary embolism; Z86.718 Personal history of other venous thrombosis and embolism; Z3A.37 37 weeks gestation of pregnancy

== ENCOUNTER 2021-02-19 15:10 | Outpatient (CLI) | payer OTHER ==
[2021-02-19] MEDS ORDERED: GADOBUTROL 10 MMOL/10 ML VIAL ONE (15:25)
[2021-02-19 15:27] LABS: CALCIUM 10.2 mg/dL (8.5-10.3); CREATININE 1.1 mg/dL (0.4-1.0)
[2021-02-19] MEDS ORDERED: GADOBUTROL 10 MMOL/10 ML VIAL IVP ONE (17:29)
--- NOTE | 2021-02-19 17:34 | MRI Report ---
PROCEDURE: Lumbar Spine W/WO INDICATIONS: LOWER EXTREMITY NEUROPATHY CONTRAST: IV CONTRAST: Gadavist ml: 9 TECHNIQUE: Noncontrast sagittal T1 spin echo and T2 fast spin echo, sagittal STIR, axial T1 and T2 fast spin ech o through the lumbar spine. In cases with scoliosis, additional coronal T2 fast spin echo may be per formed. After the administration of contrast, sagittal and axial T1 spin echo with fat saturation th rough the lumbar spine. COMPARISON: None. FINDINGS: Image quality: Excellent. Alignment and curvature: There is normal bony alignment. Marrow: Marrow is of normal overall signal. No acute vertebral body compression fractures. No susp icious marrow enhancement. Spinal cord: Conus medullaris terminates at the L1-2 level. Visualized spinal cord demonstrates nor mal signal, without suspicious enhancement. Paraspinous soft tissues: No paravertebral masses or abnormal enhancement. T12-L1: Normal in appearance. L1-L2: Normal in appearance. L2-L3: Normal in appearance. L3-L4: Normal in appearance. L4-L5: Normal in appearance. L5-S1: Mild central disc bulge is seen without significant central canal stenosis or neural foramin al narrowing.. IMPRESSION: 1. Mild central disc bulge at L5-S1 level without significant canal stenosis or neural foraminal narr owing. 2. No marrow edema. No compression fracture or spondylolisthesis. 3. No abnormal cord signal. No signal abnormalities are seen in bilateral nerve roots. No area of abn ormal enhancement is seen. Reviewed by: Sherwin Donovan MD on 02/19/2021 5:33 PM PDT Approved by: Sherwin Donovan MD on 02/19/2021 5:33 PM PDT Station ID: [id number]
== END 2021-02-19 15:11 | disposition home or self-care (01) ==
LOC: DI 15:10
PROVIDERS: ATTEND Obstetrics & Gynecology
DX: M51.87 Other intervertebral disc disorders, lumbosacral region (principal); G57.90 Unspecified mononeuropathy of unspecified lower limb
CPT/HCPCS: 36415; 72158; 80048; A9585

== ENCOUNTER 2021-04-10 08:00 | Outpatient (CLI) | payer OTHER ==
[2021-04-10 13:19] LABS: BASOPHILS # (AUTO) 0.1 10^3/uL (0.0-0.1); BASOPHILS % (AUTO) 0.6 %; EOSINOPHILS # (AUTO) 0.1 10^3/uL (0.0-0.7); EOSINOPHILS % (AUTO) 1.7 %; HCT - HEMATOCRIT 40.8 % (37.0-47.0); HGB - HEMOGLOBIN 13.6 g/dL (12.0-16.0); LYMPHOCYTES % (AUTO) 23.8 %; MEAN CORPUSCULAR HEMOGLOBIN 32.8 pg (27.0-31.0); MEAN CORPUSCULAR HGB CONC 33.3 g/dL (32.0-36.0); MEAN CORPUSCULAR VOLUME 98.3 fL (81.0-99.0); MONOCYTES # (AUTO) 0.5 10^3/uL (0.0-1.0); MONOCYTES % (AUTO) 6.2 %; NEUTROPHILS # (AUTO) 5.6 10^3/uL (1.5-6.6); NEUTROPHILS % (AUTO) 67.2 %; PLT - PLATELET COUNT 289 10^3/uL (130-450); RED BLOOD COUNT 4.15 10^6/uL (4.20-5.40); RED CELL DISTRIBUTION WIDTH 15.1 % (12.0-15.0); WHITE BLOOD COUNT 8.3 x10^3/uL (4.8-10.8)
[2021-04-10 13:57] LABS: ALBUMIN 4.5 g/dL (3.2-5.5); ALBUMIN/GLOBULIN RATIO 1.3 (1.0-2.2); BILIRUBIN,TOTAL 0.8 mg/dL (0.2-1.0); CALCIUM 10.1 mg/dL (8.5-10.3); POTASSIUM 4.2 mmol/L (3.5-5.0)
[2021-04-10 14:10] LABS: FERRITIN 42.4 ng/mL (11.0-306.8)
== END 2021-04-10 23:59 | disposition home or self-care (01) ==
LOC: LAB.WCP 08:00
PROVIDERS: ATTEND Family Medicine
DX: D64.9 Anemia, unspecified (principal)
CPT/HCPCS: 36415; 80053; 82607; 82728; 83540; 84466; 85025

== ENCOUNTER 2021-08-03 09:35 | Outpatient (CLI) | payer OTHER | END 2021-08-03 23:59 | disposition home or self-care (01) | LOC: LAB.N 09:35 | PROVIDERS: ATTEND Physician Assistant Medical | DX: R09.81 Nasal congestion (principal); Z20.822 Contact with and (suspected) exposure to COVID-19 ==